=== PATIENT | male | born 1960 | race Caucasian/White ===

== ENCOUNTER → 2018-02-03 13:31 | Outpatient (CLI) | payer OTHER ==
[2012-12-31 09:15] VITALS: BMI 25.1
[~2018-02-03 13:31] MED LIST: NORCO 10/325 TA1 TA1 PO
== END | disposition home or self-care (01) ==
LOC: D.MRI 13:31
DX: M54.2 Cervicalgia (principal)

== ENCOUNTER 2020-08-24 08:00 | Day surgery (SDC) | payer BC ==
[2020-08-24] MEDS ORDERED: IBUPROFEN200 MG PO (09:52)
[2020-08-24 09:54] VITALS: BMI 25.1
== END 2020-08-24 19:20 | disposition home or self-care (01) ==
LOC: D.OPS 08:00
PROVIDERS: ATTEND Orthopaedic Surgery
DX: M75.101 Unspecified rotator cuff tear or rupture of right shoulder, not specified as traumatic (principal); M19.011 Primary osteoarthritis, right shoulder; Z11.52 Encounter for screening for COVID-19

== ENCOUNTER 2020-08-24 09:43 | Day surgery (SDC) | payer BC ==
[~2020-08-24] VITALS: Ht 182.9 cm; Wt 83.9 kg
[2020-08-24] MEDS ORDERED: IBUPROFEN200 MG PO (09:52)
[2020-08-24 09:54] VITALS: BP 132/69; Ht 182.9 cm; Wt 83.9 kg
--- NOTE | 2020-08-24 19:40 | NUR ---
1854 IV REMOVED AND INSTRUCTIONS GIVEN TO . PT MILDLY DROWSEY
--- NOTE | 2020-08-25 11:58 | OP ---
PATIENT NAME: HEATHER SNYDER MEDICAL RECORD: [id number] :62 LOCATION:[facility] ADMISSION DATE: SURGEON: MEMO NGUYEN DO DATE OF OPERATION: 08/24/2020 PROCEDURE PERFORMED: Right shoulder arthroscopy with rotator cuff repair, labral debridement, biceps tenodesis, subacromial decompression, distal clavicle excision. PREOPERATIVE DIAGNOSES: Right shoulder full thickness rotator cuff tear, supraspinatus labral tear, subacromial impingement and acromioclavicular joint arthritis. POSTOPERATIVE DIAGNOSES: Right shoulder full thickness rotator cuff tear, supraspinatus labral tear, subacromial impingement and acromioclavicular joint arthritis. INDICATIONS: Mr. Snyder is a 59-year-old male who has had right shoulder pain for quite some time. He had an MRI showing the above findings. He was informed that if he did not do anything that his supraspinatus could tear more and that he be at risk for further injuring it as he has a very high demand physical job. He was aware of that and was aware of other risks including infection, bleeding retear, damage to nerves and vessels in the area, continued pain, arthrofibrosis of the shoulder, need for physical therapy afterwards, failure of implants, and continued pain and he signed the consent. SURGEON: Memo Nguyen DO DESCRIPTION OF PROCEDURE: The patient received a block per anesthesia in preoperative area, given 900 mg clindamycin and taken to the operative suite, laid in the left lateral decubitus position with the right shoulder up, sedated, LMA was placed. The right shoulder was then prepped and draped in sterile fashion. Timeout was performed, everyone was in agreement of the correct side, site, patient and procedure. I then began by making a posterior portal with an 18-gauge spinal needle and injecting the shoulder joint itself with 60 cc of normal saline. I then removed the spinal needle and established a posterior portal with an 11-blade scalpel. Trocar was entered into the joint. Anterior portal was established with an 18-gauge spinal needle and 11-blade scalpel. Trocar entered in to that as well. He had a large tear of the labrum anterior and posterior. I then brought in a shaver and debrided that and burner and did a biceps tenotomy of long head of the biceps tendon. Subscapularis tendon was in good repair; however, there was a full-thickness tear of the supraspinatus. The joint looked good. There was no loose body seen in the inferior gutter. I then went to the subacromial space, established a lateral portal with an 18-gauge spinal needle and 11-blade scalpel. Trocar was then entered in the joint. I then performed an acromioplasty, subacromial decompression through the anterior portal, a distal clavicle excision, opened up the AC joint approximately 7 mm. I then saw the full thickness tear of the supraspinatus, tagged it with an 18-gauge spinal needle, removed the scope and extended the incision of the lateral portal, made blunt dissection down with two [employer] and then did a single anchor medial row through the tendon with 4 suture tapes and then brought over to a lateral row anchor, making nice repair. I then put on a large Regeneten implant and stapled it into place. Then went to the anterior humerus, made a small incision and dissected out long head of the biceps tendon, I cemented proximally as it was stuck in the shoulder joint, OPERATIVE REPORT [id number] HEATHER SNYDER likely due to the scar tissue that had been torn for some time. I then whipstitched the stuff that was left and put a unicortical hole in the anterior humerus and used a 2.9 JuggerLoc loop. I then tied the whipstitch tendon through the loop and cinched the tendon down to the humerus anchoring the tendon loop. I then cut the excess suture of the loop and used a free needle and went back through the tendon and tied it down. I then cut the excess suture from that. I then irrigated with normal saline. Ezio Figueroa, certified production assistant, then closed the open sites with 2-0 Vicryl in an inverted interrupted fashion, 4-0 Monocryl running on the skin and then 4-0 Monocryl on the portal sites in inverted interrupted fashion. We then put Dermabond glue on all the incisions, dressed with Telfa and Tegaderm. He was awakened, put in a sling and taken to recovery in stable condition. BLOOD LOSS: Minimal. COMPLICATIONS: None. TRANSINT:[id number] Voice Confirmation ID: [id number] DOCUMENT ID: [id number] MEMO NGUYEN DO at 1158 CC: [id number] DICTATION DATE: 08/24/201810 CHAIN REPAIRER: 08/25/20 [id number] [facility] 08/24/20 [id number] [place] [address]
== END 2020-08-24 19:20 | disposition home or self-care (01) ==
LOC: D.OPS 09:43
PROVIDERS: ATTEND Orthopaedic Surgery
DX: M75.121 Complete rotator cuff tear or rupture of right shoulder, not specified as traumatic (principal); M19.011 Primary osteoarthritis, right shoulder; Z11.52 Encounter for screening for COVID-19